=== PATIENT | female | born 1975 | race Asian ===

== ENCOUNTER → 2020-08-23 | Outpatient (CLI) | payer OTHER ==
--- NOTE | 2020-08-30 13:52 | Diagnostic Imaging Report ---
EXAMINATION: Digital mammogram bilateral screening with CAD. COMPARISON: This study was compared to the prior exam of 12/13/2018. PERSONAL HISTORY: At this time, there are no current complaints. FINDINGS: The fibroglandular tissue in both breasts is dense. This does limit the sensitivity of this exam. On the MLO view of the right breast in the retroareolar region, there is a 1.4 cm oval asymmetry. This finding may lie in the lateral aspect of the breast on the craniocaudad view. This asymmetry may be secondary to superimposition of the dense fibroglandular tissue alone. The possibility that there is an underlying abnormality in this area should still be considered. I would recommend that compression views of this area be obtained in the CC and MLO projections as well as a true lateral view for further study. Ultrasound should also be performed. The left breast is unchanged. IMPRESSION: Additional mammographic views and ultrasound of the right breast would be recommended for further study. ACR BI-RADS Category 0: Incomplete. (Needs additional imaging evaluation). Result letter will be mailed to the patient. Note: At least 10% of breast cancer is not imaged by mammography. Dictated by: Dictated on workstation # [id number]
== END ==
LOC: RAD 10:00
PROVIDERS: ATTEND Obstetrics & Gynecology
DX: Z12.31 Encounter for screening mammogram for malignant neoplasm of breast (principal)
CPT/HCPCS: 77063; 77067

== ENCOUNTER → 2020-09-15 | Outpatient (CLI) | payer OTHER ==
--- NOTE | 2020-09-15 12:39 | Diagnostic Imaging Report ---
INDICATION: Right breast density. Patient presents for additional views. COMPARISON: Correlation is made with the screening mammogram from 08/23/2020. TECHNIQUE: Unilateral right 2D and 3D diagnostic mammography was performed. This includes spot compression CC and ML views as well as conventional 90 degree lateral views. FINDINGS: The additional views show a persistent circumscribed nodular density in the retroareolar and slightly outer right breast 3 to 4 cm from the nipple. There are some associated benign calcifications. No other masses are identified. IMPRESSION: Persistent density in the slightly outer and retroareolar right breast. Further evaluation with ultrasound is recommended and will be performed today. ACR BI-RADS Category 0: Incomplete. (Needs additional imaging evaluation). Result letter will be mailed to the patient. Note: At least 10% of breast cancer is not imaged by mammography. Dictated by: Dictated on workstation # [id number]
--- NOTE | 2020-09-15 13:09 | Diagnostic Imaging Report ---
INDICATION: Right breast density. COMPARISON: Correlation is made with the diagnostic mammogram from earlier this same day and a screening mammogram from 08/23/2020. FINDINGS: Sonographic interrogation of the outer right breast was performed. There is a macrolobulated, solid nodule at the 9 o'clock location of the right breast 3 cm from the nipple measuring 15 mm x 9 mm x 17 mm. This does appear to be wider than it is tall. No significant internal vascularity is seen. No significant posterior acoustic shadowing is present. Features are most suggestive of a fibroadenoma. This likely accounts for the density noted mammographically. IMPRESSION: Macrolobulated solid nodule at the 9 o'clock location of the right breast 3 cm from the nipple. This does correlate with the mammographic density. Features are most suggestive of a benign fibroadenoma; however, tissue sampling is recommended. This would be amenable to ultrasound-guided core biopsy. ACR BI-RADS Category 4: Suspicious abnormality. Dictated by: Dictated on workstation # [id number]
== END ==
LOC: RAD 12:09
PROVIDERS: ATTEND Obstetrics & Gynecology
DX: N63.15 Unspecified lump in the right breast, overlapping quadrants (principal)
CPT/HCPCS: 76642; 77065; G0279

== ENCOUNTER 2020-09-27 06:02 | Outpatient (RCR) | payer OTHER ==
[~2020-09-27] VITALS: Ht 157.5 cm; Wt 56.2 kg
[2020-09-29] MEDS ORDERED: TRM50T PO (11:08)
== END 2020-09-27 14:09 | disposition home or self-care (01) ==
LOC: PREOP 06:02
PROVIDERS: ATTEND Surgery
DX: Z01.812 Encounter for preprocedural laboratory examination (principal); N63.10 Unspecified lump in the right breast, unspecified quadrant; Z20.822 Contact with and (suspected) exposure to COVID-19
CPT/HCPCS: 87635

== ENCOUNTER 2020-09-29 09:49 | Day surgery (SDC) | payer OTHER ==
[2020-09-29] VITALS (11 sets, daily range): BP systolic 116–130; BP diastolic 71–84
[~2020-09-29] VITALS: Ht 157.5 cm; Wt 56.2 kg
[2020-09-29] MEDS ORDERED: ceFAZolin INJECTION 0 MG ONE (10:17)
[2020-09-29] MEDS ORDERED: ceFAZolin INJECTION 1,000 MG ONE (10:18)
[2020-09-29] MEDS ORDERED: WATER (STERILE) FOR INJECTION 10 ML ONE (10:18)
[2020-09-29] MEDS: LACTATED RINGERS 1,000 ML IV PRN ×2 (10:20→13:20)
[2020-09-29] MEDS ORDERED: proPOfol 200 MG/20 ML (DIPRIVAN) VIAL IV ONE (10:25)
[2020-09-29] MEDS ORDERED: LIDOCAINE PF 2% 5 ML (XYLOCAINE) VIAL ONE (10:25)
[2020-09-29] MEDS ORDERED: MIDAZOLAM 2 MG/2 ML (VERSED) VIAL ONE (10:25)
[2020-09-29] MEDS ORDERED: ONDANSETRON 4 MG/2 ML (SDV) Z0FRAN ONE (10:25)
[2020-09-29] MEDS ORDERED: fentaNYL INJECTION 100 MCG/2 ML AMP ONE ×2 (10:25→12:52)
[2020-09-29] MEDS ORDERED: SEVOFLURANE (ULTANE) 15 ML INHAL SOLN ONE (10:26)
[2020-09-29] MEDS ORDERED: LIDOCAINE/EPI 1%-1:100,000 (XYLOCAINE) 50 ML ONE (10:39)
[2020-09-29] MEDS ORDERED: LIDOCAINE 1% INJ 20 ML 20 ML VIAL INJ ONE (10:45)
[2020-09-29] MEDS ORDERED: ceFAZolin INJECTION 1,000 MG in WATER (STERILE) FOR INJECTION 10 ML IV ONE (10:45)
[2020-09-29] MEDS ORDERED: LIDOCAINE 1% INJ 20 ML 20 ML VIAL ONE (10:50)
--- NOTE | 2020-09-29 11:04 | Progress Note-Pre Operative ---
Pre-Operative Progress Note H&P Reviewed The H&P was reviewed, patient examined and no changes noted. Date Seen by Provider: Sep 29, 2020 Time Seen by Provider: 11:00 Date H&P Reviewed: Sep 29, 2020 Time H&P Reviewed: 11:00 Pre-Operative Diagnosis: right breast lesion MONTRELL LILLY MD Sep 29, 2020 11:04
[2020-09-29] MEDS ORDERED: TRM50T PO (11:08)
--- NOTE | 2020-09-29 11:08 | Discharge Inst-Surgical ---
D/C Lap Instructions-MAXX New, Converted, or Re-Newed RX: RX on Chart Follow Up Appt in 2 weeks Activity as tolerated No driving for 24 hours No driving while on pain medications Incentive Spirometry use every 2 hours while awake Regular Diet Symptoms to Report: Fever over 101 degree F, Nausea/Vomiting Infection Signs and Symptoms to report: Increased redness, Foul odor of wound, Increased drainage Bathing instructions: May shower Operative Area Clean/Dry; Keep incision clean/dry If any problems/questions: Contact your physician or go to Emergency Room MONTRELL LILLY MD Sep 29, 2020 11:08
[2020-09-29] MEDS ORDERED: morphine INJ 10 MG/ML 1ML (SYR OR VIAL) IVP PRN ×2 (11:15)
[2020-09-29] MEDS ORDERED: ONDANSETRON 4 MG/2 ML (SDV) Z0FRAN IVP PRN ×2 (11:15→14:15)
--- NOTE | 2020-09-29 12:04 | Diagnostic Imaging Report ---
INDICATION: Right breast mass. Patient status post ultrasound-guided hookwire localization. CC and ML 2-D mammography was performed post hookwire placement. There is a hookwire extending from a lateral approach with its tip adjacent to the lobulated mass in the retroareolar and slightly outer aspect of the right breast. IMPRESSION: Hookwire placement, as described. Dictated by: Dictated on workstation # [id number]
--- NOTE | 2020-09-29 12:18 | Diagnostic Imaging Report ---
INDICATION: Right breast mass. Patient presents for ultrasound-guided needle localization. DETAILS OF THE PROCEDURE: The patient was brought to the sonographic suite and placed on the table in the supine position. Ultrasound imaging of the right breast was performed to evaluate for an appropriate entry site. The lateral right breast was prepped and draped in the usual sterile fashion. A small amount of 1% lidocaine was utilized for local anesthesia. The localizer needle was advanced from a lateral approach and placed adjacent to the hypoechoic nodule at the 9 o'clock location of the right breast, 3 cm from the nipple. A hookwire was then passed through the needle and deployed. The needle was removed. The hookwire was affixed to the patient's skin. The patient tolerated the procedure well was sent for a post procedure mammogram in satisfactory condition. IMPRESSION: Successful ultrasound guided hookwire placement in the right breast, as described. Dictated by: Dictated on workstation # [id number]
[2020-09-29] MEDS ORDERED: fentaNYL INJECTION 100 MCG/2 ML AMP IVP ONE (13:15)
[2020-09-29] MEDS ORDERED: PHENYLEPHRINE 100 MCG/ML 10 ML (ANESTHESIA) SYR ONE (13:31)
--- NOTE | 2020-09-29 13:44 | Progress Note-Post Operative ---
Post-Operative Progess Note Surgeon (s)/Supervisor Silvering Department (s) Surgeon MONTRELL LILLY MD Supervisor Silvering Department: alex hinson MOTOR MECHANIC Pre-Operative Diagnosis right breast lesion Post-Operative Diagnosis same Procedure & Operative Findings Date of Procedure 09/29/20 Procedure Performed/Findings needle localization right breast biopsy. Anesthesia Type general LMA Estimated Blood Loss Estimated blood loss (mL): minimal Specimens/Packing Specimens Removed right breast lesion MONTRELL LILLY MD Sep 29, 2020 13:44
--- NOTE | 2020-09-29 14:10 | Anesthesia-General Post-Op ---
General Patient Condition Mental Status/LOC: Same as Preop Cardiovascular: Satisfactory Nausea/Vomiting: Absent Respiratory: Satisfactory Pain: Controlled Complications: Absent Post Op Complications Complications None Follow Up Care/Instructions Patient Instructions None needed. Anesthesia/Patient Condition Patient Condition Patient is doing well, no complaints, stable vital signs, no apparent adverse anesthesia problems. CHASE PACHECO DO Sep 29, 2020 14:10
[2020-09-29] MEDS ORDERED: morphine INJ 10 MG/ML 1ML (SYR OR VIAL) IVP ONE (14:15)
--- NOTE | 2020-09-29 15:26 | Diagnostic Imaging Report ---
INDICATION: Right breast nodule. Patient is status post excisional biopsy. FINDINGS: A specimen radiograph was submitted. The hookwire is located within the specimen with several microcalcifications. There is vague density surrounding the hookwire, likely the known nodule. There is also some density along the lateral margin of the specimen at coordinates B8 and 9. IMPRESSION: Specimen radiograph, as described. Dictated by: Dictated on workstation # [id number]
--- NOTE | 2020-09-29 20:15 | OPERATIVE REPORT ---
DATE OF SERVICE: 09/29/2020 ATTENDING PRIMARY CARE PHYSICIAN: Risa Leyva MD PREOPERATIVE DIAGNOSIS: Right breast lesion. POSTOPERATIVE DIAGNOSIS: Right breast lesion. PROCEDURE: Right breast needle localization breast biopsy. SURGEON: Montrell Lilly MD LMSW: John Castro APRN. ANESTHESIA: General laryngeal mask airway with local. ESTIMATED BLOOD LOSS: Minimal. FINDINGS: Fibrocystic breast. DISPOSITION: The patient tolerated the procedure well. INDICATIONS: The patient is a 45-year-old female referred over to us for a breast lesion detected on mammogram as well as ultrasound. She is originally from the country of [place]; however, has lived in the [place] for over 5 years. She states that she began getting annual mammograms at around age 39. She had a mammogram performed on 08/23/2020, which did show 1.4 cm oval asymmetric lesion, which was a BI-RADS category 0. She then underwent a repeat mammogram, which showed the right lesion approximately 3 to 4 cm from the nipple areolar complex with some benign calcifications and an ultrasound was performed, which did show a 15 x 9 x 17 mm lesion at approximately the 9 o'clock position of the right breast, 3 cm from the nipple areolar complex and this lesion was considered a BI-RADS category 4. She is otherwise doing well. Only past medical history includes hypercholesterolemia as well as migraine headaches. She began menses around age 15 and has not reached menopause yet. She did take oral contraceptive pills for approximately 1 year and recently had a NuvaRing placed. She has been once and has given one live . She has not had any previous breast biopsies. She also does not report any skin dimpling or any palpable lesions along the breast or the axillary region. She does not report any family history of any breast cancers. DESCRIPTION OF PROCEDURE: The patient was brought to the operating room, laid supine on the table. After adequate IV pain and sedative medications and general laryngeal mask airway intubation, the right breast was prepped and draped in standard surgical fashion. A 0.5% Marcaine with epinephrine was used to anesthetize the overlying skin along the 3 o'clock position of the right breast in a crescent shape. A crescent-shaped skin incision was then made using a 15 blade. The needle was then dissected out using Metzenbaum scissors to the skin entry site and pulled through into the open wound. We then proceeded with meticulous dissection of the lesion around the guidewire using Rufino clamps as we got deeper into the tissue and the dissection performed using electrocautery. The patient does have fibrocystic breasts. Good hemostasis was observed, and the specimen was sent to radiology. The breast tissue was then very loosely approximated using 3-0 Vicryl interrupted sutures. Skin was closed using 4-0 Monocryl running subcuticular suture. Wound was then cleaned and covered with Dermabond. The patient tolerated the procedure well. We will start IV normal pain medication as well as a clear liquid diet. When she is tolerating clears, has good pain control with oral pain medications, ambulating well, we will discharge her home. We will also recommend some form of pressure dressing to prevent seroma formation. Job ID: [id number] DocumentID: [id number] Dictated Date: 09/29/2020 13:49:22 Muck Operator Date: 09/29/2020 20:15:20 Dictated By: MONTRELL LILLY MD
--- NOTE | 2020-10-11 12:17 | HISTORY AND PHYSICAL ---
DATE OF ADMISSION: 09/30/2020. ATTENDING PRIMARY CARE PHYSICIAN: Risa Leyva MD HISTORY OF PRESENT ILLNESS: The patient is a 45-year-old female referred over to us for a breast lesion detected on mammogram as well as ultrasound. She is originally from the country of [facility]; however, has lived in [facility] for over 5 years. She states that she began getting annual mammograms at around age 39. She did have a mammogram on 08/23/2020, which did show a 1.4 cm oval asymmetry, which was a BI-RADS category 0. She then underwent a repeat, which again showed an outer right breast lesions 3 to 4 cm from the nipple with some benign calcifications. An ultrasound was then performed, which did show a 15 mm x 9 x 17 mm lesion at approximately the 9 o'clock position of the right breast, 3 cm from the nipple. This was considered a BI-RADS category 4. She states that she is otherwise doing well. Her only other past medical history includes hypercholesterolemia as well as migraine headaches. She began menses around age 15 and has not reached menopause yet. She did take oral contraceptive pills for approximately 1 year and she recently had a NuvaRing placed. She has been once and has had one live . She has not had any previous breast biopsies. She does not report any skin dimpling or any palpable breast lesions or any axillary lymphadenopathy. She also does not report any direct family history of any cancers. However, states that her maternal cousin did have gastric cancer, which is much more prevalent in the country of [facility]. Upon examination, there were no palpable breast lesions as well as no axillary or supracervical lymphadenopathy. PAST MEDICAL HISTORY: Hypercholesterolemia, migraine headaches. PAST SURGICAL HISTORY: section in 2005. ALLERGIES: SULFA AND TYLENOL. MEDICATIONS: NuvaRing. SOCIAL HISTORY: Negative smoke, negative alcohol. FAMILY HISTORY: Mother, diabetes. Maternal grandfather, myocardial infarction, age 70. Maternal cousin gastric cancer. VITAL SIGNS: Stable. Current weight 123.6 pounds, height 5 feet 2 inches. REVIEW OF SYSTEMS: Well-nourished female, in no acute distress. She is not experiencing any shortness of breath or difficulty breathing. No chest pain, palpitations, diaphoresis. No nausea, vomiting, no diarrhea or constipation. No red blood per rectum, no dark tarry stools. No chest pain, palpitations, diaphoresis. No fever, chills, no recent inadvertent weight loss. All other review of systems negative. PHYSICAL EXAMINATION: CHEST: Clear. Good breath sounds bilaterally. HEART: Regular, no murmurs. EXTREMITIES: No lower extremity edema, negative Homans sign. HEENT: No scleral icterus. NECK: No cervical lymphadenopathy. ABDOMEN: Soft, nontender, nondistended. BREASTS: Both breasts are symmetrical with no skin dimpling, no palpable lesions, no axillary or supraclavicular lymphadenopathy. ASSESSMENT AND PLAN: A 45-year-old female with BI-RADS category 4 right breast lesion at approximately the 9 o'clock position approximately 3 cm from the nipple areolar complex. We will proceed with radiologic needle localization followed by needle localization breast excisional biopsy. Job ID: [id number] DocumentID: [id number] Dictated Date: 09/22/2020 16:54:21 Retail Salesman Date: 09/22/2020 17:27:33 Dictated By: MONTRELL LILLY MD <Dictated by MONTRELL LILLY MD> <Electronically signed by MONTRELL LILLY MD> 09/22/20 [address] [facility]
== END 2020-09-29 16:05 | disposition home or self-care (01) ==
LOC: RAD 09:49
PROVIDERS: ATTEND Surgery
DX: D24.1 Benign neoplasm of right breast (principal); G43.909 Migraine, unspecified, not intractable, without status migrainosus; F41.9 Anxiety disorder, unspecified; E78.00 Pure hypercholesterolemia, unspecified; Z79.899 Other long term (current) drug therapy; Z88.2 Allergy status to sulfonamides; Z88.5 Allergy status to narcotic agent; Z80.0 Family history of malignant neoplasm of digestive organs; Z83.3 Family history of diabetes mellitus
CPT/HCPCS: 19083; 19285; 76098; 77065; 84703; 87081; 88307; G0279